=== PATIENT | male | born 2005 | race Caucasian/White ===

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

== ENCOUNTER 2024-06-16 10:47 | Emergency (ER) | payer OTHER ==
[2024-06-16 11:03] VITALS: BP 124/78; PULSE 82; RESP 20; TEMP 98.4; BMI 24.2
[2024-06-16] MEDS ORDERED: ACETAMINOPHEN INJECTION 100 ML ONE (11:42)
[2024-06-16] MEDS ORDERED: METOCLOPRAMIDE HCL INJECTION 10 MG/2 ML VIAL ONE (11:42)
[2024-06-16] MEDS: ONDANSETRON 4 MG/2 ML VIAL IVPUSH ONE (11:54)
[2024-06-16] MEDS: METOCLOPRAMIDE HCL INJECTION 10 MG/2 ML VIAL IVPUSH ONE (11:54)
[2024-06-16] MEDS: ACETAMINOPHEN 1000 MG/100 ML BAG IVPB ONE (11:54)
== END 2024-06-16 12:57 | disposition home or self-care (01) ==
LOC: JER 10:47
PROC: 3E033NZ Introduction of Analgesics, Hypnotics, Sedatives into Peripheral Vein, Percutaneous Approach (ICD-10-PCS; principal; 2024-06-16)
PROC: 3E033GC Introduction of Other Therapeutic Substance into Peripheral Vein, Percutaneous Approach (ICD-10-PCS; 2024-06-16)
PROC: 3E033GC Introduction of Other Therapeutic Substance into Peripheral Vein, Percutaneous Approach (ICD-10-PCS; 2024-06-16)
DX: G43.909 Migraine, unspecified, not intractable, without status migrainosus (principal); H53.149 Visual discomfort, unspecified
CPT/HCPCS: 99284-25; J0131

== ENCOUNTER 2024-08-07 11:22 | Emergency (ER) | payer OTHER ==
[2024-08-07 11:28] VITALS: BP 137/73; PULSE 97; RESP 18; TEMP 99.8; BMI 21.9
[2024-08-07] MEDS ORDERED: MAG HYDROX/AL HYDROX/SIMETH -MYLANTA- ORAL SUSPENSION PO ONE (11:46)
[2024-08-07] MEDS ORDERED: ONDANSETRON *ODT* 4 MG TABLET SL ONE (11:46)
== END 2024-08-07 12:12 | disposition left against medical advice (07) ==
LOC: JER 11:22
DX: Z53.21 Procedure and treatment not carried out due to patient leaving prior to being seen by health care provider (principal)
CPT/HCPCS: 99281-25